=== PATIENT | male | born 1980 | race Caucasian/White ===

== ENCOUNTER 2018-05-27 13:12 | Emergency (ER) | payer MEDICAID ==
--- NOTE | 2018-05-27 14:00 | EDM.PDOC ---
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 He was seen momentarily in [place] urgent care then transferred to the ED [facility]. He has today new onset of chest discomfort 8/10 intensity and radiates to her left jaw and left shoulder and left arm. This is preceded by 5/10 headache. Normally has 2 or 3 times year 8/10 migraines. He did not think his symptoms were related to a migraine. Today's headache was 5/10, and accompanied by tingling of his left upper extremity and lower leg associated with the L. jaw twitching. With these symptoms he was frightened he might be having a stroke. - Related Data Allergies Allergy/AdvReac Type Severity Reaction Status Date / Time No Known Allergies Allergy Verified 05/27/18 13:20 Past Medical History Cardiovascular History: Reports: Hypertension Gastrointestinal History: Reports: GERD Psychiatric History: Reports: Anxiety Endocrine/Metabolic History: Reports: Obesity/BMI 30+ Social & Family History - Family History Family Medical History: Noncontributory - Tobacco Use Smoking Status *Q: Light Tobacco Smoker Years of Tobacco use: 5 Packs/Tins Daily: 0.2 - Caffeine Use Caffeine Use: Reports: Coffee - Recreational Drug Use Recreational Drug Use: No ED ROS GENERAL - Review of Systems Review Of Systems: ROS reveals no pertinent complaints other than HPI. Respiratory: Reports: No Symptoms, Cough, Other (Light cough noted last several days) Hematologic/Lymphatic: Reports: Other (Feels cold all the time his polyuria polydipsia) ED EXAM, GENERAL - Physical Exam Exam: See Below Free Text/Narrative:: Alert overweight muscular well-nourished mal in mildly anxious with no diaphoresis Exam Limited By: No Limitations General Appearance: Alert, WD/WN, No Apparent Distress Eye Exam: Bilateral Eye: Normal Inspection (Blurred vision both eyes. EOMs normal conjugate vision normal no nystagmus. No abnormality of the retina) Ears: Normal External Exam, Normal Canal, Hearing Grossly Normal, Normal TMs Ear Exam: Bilateral Ear: Auricle Normal, Canal Normal, TM normal Nose: Normal Inspection Throat/Mouth: Normal Inspection, Normal Lips, Normal Teeth, Normal Gums, Normal Oropharynx, Normal Voice Head: Atraumatic, Normocephalic Neck: Normal Inspection, Supple, Non-Tender, Full Range of Motion Respiratory/Chest: No Respiratory Distress, Lungs Clear, Normal Breath Sounds, No Accessory Muscle Use Cardiovascular: Normal Peripheral Pulses, Regular Rate, Rhythm, No Edema, No Gallop, No JVD, No Murmur, No Rub Peripheral Pulses: 1+: Radial (L), Radial (R) GI/Abdominal: Normal Bowel Sounds, Soft, No Organomegaly, No Distention, Other ( Mild infra umbilical and infra periumbilical pain increases with attempting sit up negative with lying down negative Carnett's sign) (Male) Exam: No Hernia, Other (circumsized) Rectal (Males) Exam: Deferred Back Exam: Normal Inspection, Other Extremities: Normal Inspection, Normal Range of Motion, No Pedal Edema, Normal Capillary Refill Neurological: Alert, Oriented, CN II-XII Intact, Normal Cognition, Normal Gait, Normal Reflexes, No Motor/Sensory Deficits, Other (Normal sharp sensation right upper lower extremities, decreased sharp sensation left upper and lower extremities, no pronator drift, slight decrease left hand edge banding off bearer. He is left-hand dominant so this is slightly abnormal.) Psychiatric: Normal Affect, Normal Mood Skin Exam: Warm, Dry, Intact, Normal Color Lymphatic: No Adenopathy EKG INTERPRETATION EKG Date: 05/27/18 Time: 14:00 Rhythm: NSR [place]: Normal P-Wave: Present QRS: Other (Late R-wave progression anterior precordials suggesting left posterior hemiblock) ST-T: Normal QT: Normal EKG Interpretation Comments: Left posterior hemiblock, normal sinus rhythm, inferior Q waves in 2 aVF (are not abn abnormal face of left posterior hemiblock). Course - Vital Signs Last Recorded V/S: Last Vital Signs Temp 36.6 C 05/27/18 13:20 Pulse 78 05/27/18 14:30 Resp 20 05/27/18 13:20 BP 164/97 H 05/27/18 14:30 Pulse Ox 99 05/27/18 14:30 - Orders/Labs/Meds Orders: Active Orders 24 hr Category Date Time Status EKG Documentation Completion [RC] ASDIRECTED Care 05/27/18 13:48 Active CXR [Chest 2V] [CR] Stat Exams 05/27/18 13:47 Taken Head wo Cont [CT] Stat Exams 05/27/18 13:46 Taken DRUG SCREEN, URINE ALERE [URCHEM] Urgent Lab 05/27/18 13:49 Ordered UA W/MICROSCOPIC [URIN] Urgent Lab 05/27/18 13:49 Ordered EKG 12 Lead [EK] Routine Ther 05/27/18 13:48 Ordered Labs: Laboratory Tests 05/27/18 05/27/18 05/27/18 Range/Units 14:00 14:00 14:00 WBC 10.9 (4.5-12.0) X10-3/uL RBC 5.80 H (4.30-5.75) x10(6)uL Hgb 17.5 H (11.5-15.5) g/dL Hct 52.0 H (30.0-51.3) % MCV 89.7 (80-96) fL MCH 30.2 (27.7-33.6) pg MCHC 33.7 (32.2-35.4) g/dL RDW 12.5 (11.5-15.5) % Plt Count 234 (125-369) X10(3)uL MPV 9.5 (7.4-10.4) fL Neut % (Auto) 74.3 (46-82) % Lymph % (Auto) 17.3 (13-37) % [place] % (Auto) 5.9 (4-12) % Eos % (Auto) 1 (1.0-5.0) % Baso % (Auto) 2 (0-2) % Neut # (Auto) 8.1 (1.6-8.3) # Lymph # (Auto) 1.9 (0.6-5.0) # [place] # (Auto) 0.6 (0.0-1.3) # Eos # (Auto) 0.1 (0.0-0.8) # Baso # (Auto) 0.2 (0.0-0.2) # D-Dimer, Quantitative (0.0-0.59) mg/LFEU Sodium 141 (135-145) mmol/L Potassium 3.9 (3.5-5.3) mmol/L Chloride 104 (100-110) mmol/L Carbon Dioxide 26 (21-32) mmol/L BUN 11 (7-18) mg/dL Creatinine 1.0 (0.70-1.30) mg/dL Est Cr Clr Drug Dosing 106.68 mL/min Estimated GFR (MDRD) > 60 (>60) BUN/Creatinine Ratio 11.0 (9-20) Glucose 97 (80-116) mg/dL Calcium 9.4 (8.6-10.2) mg/dL Total Bilirubin 1.0 (0.1-1.3) mg/dL AST 18 (5-25) IU/L ALT 29 (12-36) U/L Alkaline Phosphatase 116 H (56-112) IU/L Troponin I < 0.017 L (<0.017-0.056) ng/mL Total Protein 8.3 H (6.0-8.0) g/dL Albumin 4.5 (3.5-5.2) g/dL Globulin 3.8 g/dL Albumin/Globulin Ratio 1.2 05/27/18 Range/Units 14:00 WBC (4.5-12.0) X10-3/uL RBC (4.30-5.75) x10(6)uL Hgb (11.5-15.5) g/dL Hct (30.0-51.3) % MCV (80-96) fL MCH (27.7-33.6) pg MCHC (32.2-35.4) g/dL RDW (11.5-15.5) % Plt Count (125-369) X10(3)uL MPV (7.4-10.4) fL Neut % (Auto) (46-82) % Lymph % (Auto) (13-37) % [place] % (Auto) (4-12) % Eos % (Auto) (1.0-5.0) % Baso % (Auto) (0-2) % Neut # (Auto) (1.6-8.3) # Lymph # (Auto) (0.6-5.0) # [place] # (Auto) (0.0-1.3) # Eos # (Auto) (0.0-0.8) # Baso # (Auto) (0.0-0.2) # D-Dimer, Quantitative 0.34 (0.0-0.59) mg/LFEU Sodium (135-145) mmol/L Potassium (3.5-5.3) mmol/L Chloride (100-110) mmol/L Carbon Dioxide (21-32) mmol/L BUN (7-18) mg/dL Creatinine (0.70-1.30) mg/dL Est Cr Clr Drug Dosing mL/min Estimated GFR (MDRD) (>60) BUN/Creatinine Ratio (9-20) Glucose (80-116) mg/dL Calcium (8.6-10.2) mg/dL Total Bilirubin (0.1-1.3) mg/dL AST (5-25) IU/L ALT (12-36) U/L Alkaline Phosphatase (56-112) IU/L Troponin I (<0.017-0.056) ng/mL Total Protein (6.0-8.0) g/dL Albumin (3.5-5.2) g/dL Globulin g/dL Albumin/Globulin Ratio Departure - Departure Time of Disposition: 14:00 (Working Diagnosis probable migraine with blurred vision left mary-esthesia. Negative CT head. EKG sinus rhythm abnormal left posterior hemiblock abnormal R-wave progression without ST elevation suggestive coronary artery disease. Has potential for other risk factor of coronary disease dyslipidemia. CT head negative. He moments ago ([id number]) told the nurse that he has not taken his lisinopril 20 mg/day for 2 months because he ran out of the prescription and did not have the money. Also work excuse is given for today he will return to work on 05/28/2018) Disposition: Home, Self-Care 01 Condition: Good Clinical Impression: Obesity (BMI 35.0-39.9 without comorbidity) Migraine Qualifiers: Migraine type: without aura Status migrainosus presence: without status migrainosus Intractability: not intractable Qualified Code(s): G43.009 - Migraine without aura, not intractable, without status migrainosus - Discharge Information Referrals: PCP,None [Primary Care Provider] - Forms: ED Department Discharge - My Orders Last 24 Hours: My Active Orders 05/27/18 13:46 Head wo Cont [CT] Stat 05/27/18 13:47 CXR [Chest 2V] [CR] Stat 05/27/18 13:48 EKG Documentation Completion [RC] ASDIRECTED EKG 12 Lead [EK] Routine 05/27/18 13:49 DRUG SCREEN, URINE ALERE [URCHEM] Urgent UA W/MICROSCOPIC [URIN] Urgent - Assessment/Plan Last 24 Hours: My Active Orders 05/27/18 13:46 Head wo Cont [CT] Stat 05/27/18 13:47 CXR [Chest 2V] [CR] Stat 05/27/18 13:48 EKG Documentation Completion [RC] ASDIRECTED EKG 12 Lead [EK] Routine 05/27/18 13:49 DRUG SCREEN, URINE ALERE [URCHEM] Urgent UA W/MICROSCOPIC [URIN] Urgent
== END 2018-05-27 14:49 | disposition home or self-care (01) ==
LOC: FB.ED 13:12
DX: G43.009 Migraine without aura, not intractable, without status migrainosus (principal); E66.9 Obesity, unspecified; F17.210 Nicotine dependence, cigarettes, uncomplicated; I10 Essential (primary) hypertension; K21.9 Gastro-esophageal reflux disease without esophagitis; Z68.36 Body mass index [BMI] 36.0-36.9, adult
CPT/HCPCS: 36415; 70450; 71046; 80053; 84484; 85025; 85379; 93005; 99284-25

== ENCOUNTER 2018-12-14 11:03 | Emergency (ER) | payer MEDICAID ==
--- NOTE | 2018-12-14 12:30 | EDM.PDOC ---
ED HPI GENERAL MEDICAL PROBLEM - General Chief Complaint: Cardiovascular Problem Stated Complaint: HIGH BP Time Seen by Provider: 12/14/18 11:17 Source of Information: Reports: Patient History Limitations: Reports: No Limitations - History of Present Illness INITIAL COMMENTS - FREE TEXT/NARRATIVE: Patient sent over from walk-in clinic with concern for elevated blood pressure, substernal chest burning and cough for a week. Has been off of his lisinopril 40 mg once daily and then taking some cold medications. Patient is otherwise asymptomatic except for complaints of a headache, which he states is from his cold. Patient notes he has had cold symptoms for approximately a week. He notes slight headache, nasal congestion, coughing, sore throat, some chills and sweats but no fever. He has had some ringing in his left ear on occasion. He has been taking NyQuil and DayQuil but not any other [id number]-uvqaipe medications. He denies having had a fever, shortness of breath or difficulty on exertion, change in tobacco use. He smokes cigarettes occasionally and also drinks occasional social alcohol. He has a history of hypertension which he is prescribed lisinopril 40 mg for but has not been taking it for the past month. - Related Data Allergies Allergy/AdvReac Type Severity Reaction Status Date / Time No Known Allergies Allergy Verified 05/27/18 13:20 Home Meds: Home Meds Lisinopril 20 mg PO DAILY #30 tablet 05/27/18 [Rx] Omeprazole 20 mg PO ACBREAKFAST #60 cap.sr 05/27/18 [Rx] Albuterol [Ventolin HFA] 4 puff .XX Q4H PRN #1 inhaler 12/14/18 [Rx] Past Medical History Cardiovascular History: Reports: Hypertension Gastrointestinal History: Reports: GERD Psychiatric History: Reports: Anxiety Endocrine/Metabolic History: Reports: Obesity/BMI 30+ Social & Family History - Family History Family Medical History: Noncontributory (no history of early DE/sudden cardiac ) - Tobacco Use Smoking Status *Q: Current Some Day Smoker - Caffeine Use Caffeine Use: Reports: Coffee - Alcohol Use Alcohol Use History: Yes Date/Time of Last Drink Comment: social - Recreational Drug Use Recreational Drug Use: No - Living Situation & Occupation Living situation: Reports: with Significant Other Occupation: Employed ED ROS GENERAL - Review of Systems Review Of Systems: ROS reveals no pertinent complaints other than HPI. ED EXAM, GENERAL - Physical Exam Exam: See Below Free Text/Narrative:: Gen.: Alert, no acute distress. Tympanic membranes are clear bilaterally with normal light reflex and throat is without erythema, mucous members are moist and there is no tonsillar enlargement or exudates. Significant nasal congestion is noted. No sinus tenderness. Neck is supple and there is no cervical lymphadenopathy. Lungs are clear throughout with a few inspiratory and expiratory wheezes but no crackles and good air movement overall. Heart is regular rate and rhythm and I do not hear murmur. Peripheral pulses +2 in the upper and lower extremities and there is no lower extremity edema. His blood pressure on arrival here is 163/95 Course - Vital Signs Text/Narrative:: Labs ordered. EKG appears normal. Chest x-ray does not show an acute infiltrate. Blood pressure not in severe range here - Orders/Labs/Meds Orders: Active Orders 24 hr Category Date Time Status EKG Documentation Completion [RC] ASDIRECTED Care 12/14/18 11:13 Active EKG 12 Lead [EK] Stat Ther 12/14/18 11:12 Ordered Labs: Laboratory Tests 12/14/18 12/14/18 12/14/18 Range/Units 11:40 11:40 11:40 WBC 10.9 (4.5-12.0) X10-3/uL RBC 5.72 (4.30-5.75) x10(6)uL Hgb 17.2 (13.5-17.8) g/dL Hct 51.3 (30.0-51.3) % MCV 89.7 (80-96) fL MCH 30.1 (27.7-33.6) pg MCHC 33.5 (32.2-35.4) g/dL RDW 13.4 (11.5-15.5) % Plt Count 179 (125-369) X10(3)uL MPV 10.1 (7.4-10.4) fL Add Manual Diff Yes Neutrophils % (Manual) 82 (46-82) % Lymphocytes % (Manual) 12 L (13-37) % Monocytes % (Manual) 5 (4-12) % Eosinophils % (Manual) 1 (0-5) % Sodium 143 (135-145) mmol/L Potassium 3.6 (3.5-5.3) mmol/L Chloride 107 (100-110) mmol/L Carbon Dioxide 26 (21-32) mmol/L BUN 10 (7-18) mg/dL Creatinine 0.8 (0.70-1.30) mg/dL Est Cr Clr Drug Dosing TNP Estimated GFR (MDRD) > 60 (>60) BUN/Creatinine Ratio 12.5 (9-20) Glucose 85 (80-116) mg/dL Calcium 9.1 (8.6-10.2) mg/dL Troponin I < 0.017 L (<0.017-0.056) ng/mL C-Reactive Protein (0.5-0.9) mg/dL 12/14/18 Range/Units 11:40 WBC (4.5-12.0) X10-3/uL RBC (4.30-5.75) x10(6)uL Hgb (13.5-17.8) g/dL Hct (30.0-51.3) % MCV (80-96) fL MCH (27.7-33.6) pg MCHC (32.2-35.4) g/dL RDW (11.5-15.5) % Plt Count (125-369) X10(3)uL MPV (7.4-10.4) fL Add Manual Diff Neutrophils % (Manual) (46-82) % Lymphocytes % (Manual) (13-37) % Monocytes % (Manual) (4-12) % Eosinophils % (Manual) (0-5) % Sodium (135-145) mmol/L Potassium (3.5-5.3) mmol/L Chloride (100-110) mmol/L Carbon Dioxide (21-32) mmol/L BUN (7-18) mg/dL Creatinine (0.70-1.30) mg/dL Est Cr Clr Drug Dosing Estimated GFR (MDRD) (>60) BUN/Creatinine Ratio (9-20) Glucose (80-116) mg/dL Calcium (8.6-10.2) mg/dL Troponin I (<0.017-0.056) ng/mL C-Reactive Protein 0.7 (0.5-0.9) mg/dL - Re-Assessments/Exams Free Text/Narrative Re-Assessment/Exam: 12/14/18 labs reviewed, patient's blood pressure improved after sitting a while. No acute infiltrate seen on chest x-ray, and he has not had any chest pain or other symptoms here suggestive of symptomatic hypertension. He would very much like to go home. Discussed symptomatic treatments for upper respiratory tract infection, and strongly recommended restart lisinopril. Also discussed smoking cessation. He is in agreement with this plan and has no further questions Departure - Departure Time of Disposition: 12:28 Disposition: Home, Self-Care 01 Reason for Transfer *Q: Primary PCI Indicated Clinical Impression: Hypertensive heart disease, Viral URI with cough Prescriptions: Albuterol [Ventolin HFA] 4 puff .XX Q4H PRN #1 inhaler PRN Reason: Cough Instructions: Upper Respiratory Infection, Adult, [id number], Hypertension Referrals: PCP,None [Primary Care Provider] - Forms: ED Department Discharge Additional Instructions: lots of fluids careful with cold medicines - anything that says "do not take if high blood pressure" restart lisinopril inhaler sent in for cough - My Orders Last 24 Hours: My Active Orders 12/14/18 11:12 EKG 12 Lead [EK] Stat 12/14/18 11:13 EKG Documentation Completion [RC] ASDIRECTED - Assessment/Plan Last 24 Hours: My Active Orders 12/14/18 11:12 EKG 12 Lead [EK] Stat 12/14/18 11:13 EKG Documentation Completion [RC] ASDIRECTED
--- NOTE | 2018-12-14 13:44 | CR ---
INDICATION: Chest pain. CHEST: PA and lateral views of the chest, 12/14/18, were compared with 05/27/18 , again revealing the heart to be normal in size and shape. Mediastinum and bone thorax were unremarkable. An active infiltrate, effusion, or pneumothorax was not identified. Overlying EKG leads are noted. IMPRESSION: No active disease. MTDD
== END 2018-12-14 12:50 | disposition home or self-care (01) ==
LOC: FB.ED 11:03
DX: I11.9 Hypertensive heart disease without heart failure (principal); J06.9 Acute upper respiratory infection, unspecified; F17.200 Nicotine dependence, unspecified, uncomplicated
CPT/HCPCS: 36415; 71046; 80048; 84484; 85025; 86140; 93005; 99283-25

== ENCOUNTER 2020-11-13 19:46 | Emergency (ER) | payer MEDICAID ==
[2020-11-13] MEDS ORDERED: Ketorolac 10 MG Tab PO ONE (19:47)
[2020-11-13] MEDS ORDERED: Acetaminophen/HYDROcodone 325-5 MG Tab PO ONE (19:47)
[2020-11-13] MEDS ORDERED: Ketorolac 30 MG/ML SDV IVPUSH ONE (20:26)
[2020-11-13] MEDS ORDERED: Sodium Chloride 0.9% 1,000 ML IV ONE (20:26)
--- NOTE | 2020-11-13 20:57 | EDM.PDOC ---
ED HPI GENERAL MEDICAL PROBLEM - General Stated Complaint: PAIN IN RIGHT SIDE Time Seen by Provider: 11/13/20 20:05 Source of Information: Reports: Patient, Family History Limitations: Reports: No Limitations - History of Present Illness INITIAL COMMENTS - FREE TEXT/NARRATIVE: c/o R flank pain pt has had nonspecific discomfort in the R groin x 2w, felt like he was unable to evacuate his bladder or bowels, he took Ex Lax yesterday and had a large soft BM he worked at [employer] today, got home at 6:30 and now had pain at R flank that wrapped around to his R groin, took no meds, "I don't like to take meds," ate no supper no h/o abd surgery, no prior abd pain, no h/o stones pacing in room, pain 01/07 - Related Data Allergies Allergy/AdvReac Type Severity Reaction Status Date / Time No Known Allergies Allergy Verified 11/13/20 21:28 Home Meds: Home Meds Lisinopril 20 mg PO DAILY #30 tablet 05/27/18 [Rx] Past Medical History Cardiovascular History: Reports: Hypertension Gastrointestinal History: Reports: GERD Psychiatric History: Reports: Anxiety Endocrine/Metabolic History: Reports: Obesity/BMI 30+ Social & Family History - Family History Family Medical History: No Pertinent Family History - Caffeine Use Caffeine Use: Reports: Coffee - Living Situation & Occupation Living situation: Reports: with Significant Other Occupation: Employed ED ROS GENERAL - Review of Systems Review Of Systems: See Below Constitutional: Reports: No Symptoms HEENT: Reports: No Symptoms Respiratory: Reports: No Symptoms Cardiovascular: Reports: No Symptoms Endocrine: Reports: No Symptoms GI/Abdominal: Reports: Constipation. Denies: Nausea, Vomiting : Reports: No Symptoms Musculoskeletal: Reports: No Symptoms Skin: Reports: No Symptoms Neurological: Reports: No Symptoms Psychiatric: Reports: No Symptoms Hematologic/Lymphatic: Reports: No Symptoms Immunologic: Reports: No Symptoms ED EXAM, GI/ABD - Physical Exam Exam: See Below Exam Limited By: No Limitations General Appearance: Alert, WD/WN, Mild Distress Ears: Hearing Grossly Normal Nose: Normal Inspection Throat/Mouth: Normal Inspection, Normal Voice, No Airway Compromise Head: Atraumatic, Normocephalic Neck: Normal Inspection, Supple, Non-Tender, Full Range of Motion. No: Lymphadenopathy (R), Lymphadenopathy (L) Respiratory/Chest: No Respiratory Distress, Lungs Clear, Normal Breath Sounds, Chest Non-Tender Cardiovascular: Regular Rate, Rhythm, No Edema, No Murmur GI/Abdominal Exam: Normal Bowel Sounds, Soft, No Organomegaly, No Distention, No Mass, Other (1+ tender at R flank and R groin, less tender at McBurney's point, 1+ CVAT on R, nontender elsewhere) Back Exam: Normal Inspection, Full Range of Motion Extremities: Normal Inspection, Normal Range of Motion, Non-Tender, No Pedal Edema Neurological: Alert, Oriented, CN II-XII Intact, Normal Cognition, No Motor/Sensory Deficits Psychiatric: Normal Affect, Normal Mood Skin Exam: Warm, Dry, Intact, Normal Color, No Rash Lymphatic: No Adenopathy Course - Vital Signs Last Recorded V/S: Last Vital Signs Temp 37.1 C 11/13/20 19:55 Pulse 82 11/13/20 19:55 Resp 18 11/13/20 19:55 BP 172/99 H 11/13/20 19:55 Pulse Ox 96 11/13/20 19:55 - Orders/Labs/Meds Orders: Active Orders 24 hr Category Date Time Status Abdomen Pelvis wo Cont [CT] Stat Exams 11/13/20 20:27 Ordered Labs: Laboratory Tests 11/13/20 11/13/20 11/13/20 Range/Units 20:20 20:40 20:40 WBC 11.1 H (3.2-10.1) x10-3/uL RBC 5.07 (3.90-5.90) x10(6)uL Hgb 15.4 (12.9-17.7) g/dL Hct 45.3 (38.3-50.1) % MCV 89.5 (80.8-98.7) fL MCH 30.3 (27.0-33.3) pg MCHC 33.9 (28.7-35.3) g/dL RDW 13.3 (12.4-15.0) % Plt Count 210 (117-477) x10(3)uL MPV 10.4 (6.7-11.0) fL Neut % (Auto) 72.1 H (40.3-71.8) % Lymph % (Auto) 15.8 (15.8-45.3) % Page % (Auto) 7.1 (5.5-15.2) % Eos % (Auto) 4.3 (0.1-6.8) % Baso % (Auto) 0.7 (0.3-3.8) % Neut # (Auto) 8.0 H (1.7-6.9) x10-3/uL Lymph # (Auto) 1.8 (0.5-4.5) x10-3/uL Page # (Auto) 0.8 (0.0-1.2) x10-3/uL Eos # (Auto) 0.5 (0.0-0.6) x10-3/uL Baso # (Auto) 0.1 (0.0-0.3) x10-3/uL Sodium 145 (135-145) mmol/L Potassium 4.5 (3.5-5.3) mmol/L Chloride 109 (100-110) mmol/L Carbon Dioxide 24 (21-32) mmol/L BUN 17 (7-18) mg/dL Creatinine 1.1 (0.70-1.30) mg/dL Est Cr Clr Drug Dosing TNP Estimated GFR (MDRD) > 60 (>60) BUN/Creatinine Ratio 15.5 (9-20) Glucose 139 H (80-116) mg/dL Calcium 9.2 (8.6-10.2) mg/dL Total Bilirubin 1.0 (0.1-1.3) mg/dL AST 25 D (5-25) IU/L ALT 34 D (12-36) U/L Alkaline Phosphatase 105 (56-112) IU/L C-Reactive Protein (0.5-0.9) mg/dL Total Protein 7.6 (6.0-8.0) g/dL Albumin 3.9 (3.5-5.2) g/dL Globulin 3.7 g/dL Albumin/Globulin Ratio 1.1 Urine Color Yellow (YELLOW) Urine Appearance Clear (CLEAR) Urine pH 5.0 (5.0-6.5) Ur Specific [place] 1.030 H (1.010-1.025) Urine Protein Negative (NEGATIVE) mg/dL Urine Glucose (UA) Normal (NORMAL) mg/dL Urine Ketones Negative (NEGATIVE) mg/dL Urine Occult Blood Large H (NEGATIVE) Urine Nitrite Negative (NEGATIVE) Urine Bilirubin Negative (NEGATIVE) Urine Urobilinogen Normal (NEGATIVE) mg/dL Ur Leukocyte Esterase Negative (NEGATIVE) Urine RBC 5-10 H (0-5) Urine WBC 0-5 (0-5) Ur Squamous Epith Cells Occasional (NS,R,O) Urine Bacteria Few H (NS) 11/13/20 Range/Units 20:40 WBC (3.2-10.1) x10-3/uL RBC (3.90-5.90) x10(6)uL Hgb (12.9-17.7) g/dL Hct (38.3-50.1) % MCV (80.8-98.7) fL MCH (27.0-33.3) pg MCHC (28.7-35.3) g/dL RDW (12.4-15.0) % Plt Count (117-477) x10(3)uL MPV (6.7-11.0) fL Neut % (Auto) (40.3-71.8) % Lymph % (Auto) (15.8-45.3) % Page % (Auto) (5.5-15.2) % Eos % (Auto) (0.1-6.8) % Baso % (Auto) (0.3-3.8) % Neut # (Auto) (1.7-6.9) x10-3/uL Lymph # (Auto) (0.5-4.5) x10-3/uL Page # (Auto) (0.0-1.2) x10-3/uL Eos # (Auto) (0.0-0.6) x10-3/uL Baso # (Auto) (0.0-0.3) x10-3/uL Sodium (135-145) mmol/L Potassium (3.5-5.3) mmol/L Chloride (100-110) mmol/L Carbon Dioxide (21-32) mmol/L BUN (7-18) mg/dL Creatinine (0.70-1.30) mg/dL Est Cr Clr Drug Dosing Estimated GFR (MDRD) (>60) BUN/Creatinine Ratio (9-20) Glucose (80-116) mg/dL Calcium (8.6-10.2) mg/dL Total Bilirubin (0.1-1.3) mg/dL AST (5-25) IU/L ALT (12-36) U/L Alkaline Phosphatase (56-112) IU/L C-Reactive Protein 0.4 L (0.5-0.9) mg/dL Total Protein (6.0-8.0) g/dL Albumin (3.5-5.2) g/dL Globulin g/dL Albumin/Globulin Ratio Urine Color (YELLOW) Urine Appearance (CLEAR) Urine pH (5.0-6.5) Ur Specific [place] (1.010-1.025) Urine Protein (NEGATIVE) mg/dL Urine Glucose (UA) (NORMAL) mg/dL Urine Ketones (NEGATIVE) mg/dL Urine Occult Blood (NEGATIVE) Urine Nitrite (NEGATIVE) Urine Bilirubin (NEGATIVE) Urine Urobilinogen (NEGATIVE) mg/dL Ur Leukocyte Esterase (NEGATIVE) Urine RBC (0-5) Urine WBC (0-5) Ur Squamous Epith Cells (NS,R,O) Urine Bacteria (NS) Meds: Medications Discontinued Medications Generic Name Dose Route Start Last Admin Trade Name Portia PRN Reason Stop Dose Admin Diphenhydramine HCl 25 mg 11/13/20 21:19 11/13/20 21:28 Diphenhydramine 50 Mg/Ml Sdv IVPUSH 11/13/20 21:20 25 mg ONETIME ONE Administration Sodium Chloride 1,000 mls @ 999 mls/hr 11/13/20 20:26 11/13/20 20:45 Normal Saline IV 11/13/20 21:26 999 mls/hr .BOLUS ONE Administration Ketorolac Tromethamine 30 mg 11/13/20 20:26 11/13/20 20:47 Ketorolac 30 Mg/Ml Sdv IVPUSH 11/13/20 20:27 30 mg ONETIME ONE Administration Metoclopramide HCl 10 mg 11/13/20 21:19 11/13/20 21:23 Metoclopramide 10 Mg/2 Ml Sdv IVPUSH 11/13/20 21:20 10 mg ONETIME ONE Administration - Re-Assessments/Exams Free Text/Narrative Re-Assessment/Exam: 11/13/20 22:10 1 mm stone at R UVJ on CT, u/a with 5-10 rbc pt with good pain relief with meds here advised he could work Departure - Departure Time of Disposition: 22:06 Disposition: Home, Self-Care 01 Condition: Good Clinical Impression: Renal colic on right side, Ureteral stone - Discharge Information *PRESCRIPTION DRUG MONITORING PROGRAM REVIEWED*: Yes *COPY OF PRESCRIPTION DRUG MONITORING REPORT IN PATIENT HILARY: No Instructions: Kidney Stones, Renal Colic Referrals: PCP,None [Primary Care Provider] - Forms: ED Return to Work/School Form Additional Instructions: For pain, take ketorolac 10 mg 1 tab 4 times a day until the stone passes. For pain not controlled with ketorolac, take hydrocodone with acetaminophen 5/325 mg 1 tab every 6 hours as needed. Maintain fluids. Get adequate rest. See your doctor in 3-4 days for further recommendations. Return to Emergency Department if you have additional symptoms or pain that is not is controlled at home. Sepsis Event Note (ED) - Focused Exam Vital Signs: Vital Signs Temp Pulse Resp BP Pulse Ox 11/13/20 19:55 37.1 C 82 18 172/99 H 96 - My Orders Last 24 Hours: My Active Orders 11/13/20 20:27 Abdomen Pelvis wo Cont [CT] Stat - Assessment/Plan Last 24 Hours: My Active Orders 11/13/20 20:27 Abdomen Pelvis wo Cont [CT] Stat
[2020-11-13] MEDS ORDERED: diphenhydrAMINE 50 MG/ML SDV IVPUSH ONE (21:19)
[2020-11-13] MEDS ORDERED: Metoclopramide 10 MG/2 ML SDV IVPUSH ONE (21:19)
== END 2020-11-13 22:30 | disposition home or self-care (01) ==
LOC: FB.ED 19:46
DX: N13.2 Hydronephrosis with renal and ureteral calculous obstruction (principal); K21.9 Gastro-esophageal reflux disease without esophagitis; I10 Essential (primary) hypertension; E66.9 Obesity, unspecified; Z79.899 Other long term (current) drug therapy; Z68.39 Body mass index [BMI] 39.0-39.9, adult
CPT/HCPCS: 36415; 74176; 80053; 81001; 85025; 86140; 96374; 96375; 99284; A9270; J1200; J1885; J2765; J7030

== ENCOUNTER 2024-03-15 11:21 | Emergency (ER) | payer BC, MEDICAID ==
[2024-03-15] MEDS ORDERED: Metoprolol Tartrate 5 MG in Sodium Chloride 0.9% 50 ML IV ONE (11:50)
[2024-03-15 12:00] LABS: BASOPHILS ABSOLUTE AUTO 0.1 x10-3/uL (0.0-0.3); BASOPHILS PERCENT AUTO 0.9 % (0.3-3.8); EOSINOPHILS ABSOLUTE AUTO 0.2 x10-3/uL (0.0-0.6); EOSINOPHILS PERCENT AUTO 1.9 % (0.1-6.8); HEMATOCRIT 50.3 % (38.3-50.1); HEMOGLOBIN 17.7 g/dL (12.9-17.7); LYMPHOCYTES ABSOLUTE AUTO 1.3 x10-3/uL (0.5-4.5); LYMPHOCYTES PERCENT AUTO 13.9 % (15.8-45.3); MEAN CORPUSCULAR HEMOGLOBIN 31.5 pg (27.0-33.3); MEAN CORPUSCULAR HGB CONC 35.2 g/dL (28.7-35.3); MEAN CORPUSCULAR VOLUME 89.5 fL (80.8-98.7); MEAN PLATELET VOLUME 9.6 fL (6.7-11.0); MONOCYTES ABSOLUTE AUTO 0.7 x10-3/uL (0.0-1.2); MONOCYTES PERCENT AUTO 7.1 % (5.5-15.2); NEUTROPHILS ABSOLUTE AUTO 7.2 x10-3/uL (1.7-6.9); NEUTROPHILS PERCENT AUTO 76.2 % (40.3-71.8); PLATELET COUNT,PLT 195 x10(3)uL (117-477); RED BLOOD CELL COUNT 5.62 x10(6)uL (3.90-5.90); RED CELL DISTRIBUTION WIDTH 13.8 % (12.4-15.0); WHITE BLOOD CELL COUNT,WBC 9.4 x10-3/uL (3.2-10.1)
[2024-03-15 12:08] LABS: BLOOD UREA NITROGEN,BUN 11 mg/dL (7-18); BUN/CREATININE RATIO 12.2 (9-20); CALCIUM 9.7 mg/dL (8.6-10.2); CARBON DIOXIDE,CO2 24 mmol/L (21-32); CHLORIDE,CL 105 mmol/L (100-110); CREATININE 0.9 mg/dL (0.70-1.30); ESTIMATED GFR 108 mL/min (>60); GLUCOSE RANDOM 99 mg/dL (80-116); POTASSIUM,K 3.7 mmol/L (3.5-5.3); SODIUM,NA 141 mmol/L (135-145)
[2024-03-15 12:13] LABS: A/G RATIO 1.2; ALANINE AMINOTRANSFERASE,ALT 42 U/L (12-36); ALBUMIN 4.6 g/dL (3.5-5.2); ALKALINE PHOSPHATASE 121 IU/L (56-112); ASPARTATE AMNIOTRANSFERASE,AST 24 IU/L (5-25); BILIRUBIN TOTAL 1.9 mg/dL (0.1-1.3); PROTEIN TOTAL,TP 8.3 g/dL (6.0-8.0)
[2024-03-15] MEDS: Sodium Chloride 0.9% 1,000 ML IV ONE (12:13)
[2024-03-15] MEDS: Metoprolol Tartrate 5 MG/5 ML SDV IVPUSH ONE (12:13)
[2024-03-15 12:16] LABS: HEMOGLOBIN A1C 5.1 % (<5.7)
[2024-03-15] MEDS: cloNIDine 0.1 MG Tab PO ONE (13:13)
[2024-03-15] MEDS ORDERED: Ketorolac 30 MG/ML SDV IVPUSH ONE (14:05)
[2024-03-15] MEDS: Ketorolac 15 MG/ML SDV IVPUSH ONE (14:11)
[2024-03-15] MEDS: Sodium Chloride 0.9% 10 ML Syringe FLUSH PRN (14:12)
== END 2024-03-15 15:15 | disposition home or self-care (01) ==
LOC: FB.ED 11:21
DX: G44.209 Tension-type headache, unspecified, not intractable (principal); I11.9 Hypertensive heart disease without heart failure; E66.9 Obesity, unspecified; Z79.899 Other long term (current) drug therapy; Z68.41 Body mass index [BMI] 40.0-44.9, adult
CPT/HCPCS: 36415; 80053; 83036; 83735; 85025; 86140; 96361; 96374; 96375; 99283; A9270; J1885; J3490; J7030

== ENCOUNTER 2024-03-23 09:14 | Emergency (ER) | payer MEDICAID ==
[2024-03-23] MEDS: cloNIDine 0.1 MG Tab PO ONE (10:00)
== END 2024-03-23 11:25 | disposition home or self-care (01) ==
LOC: FB.ED 09:14
DX: I10 Essential (primary) hypertension (principal); E78.00 Pure hypercholesterolemia, unspecified; K21.9 Gastro-esophageal reflux disease without esophagitis; E66.9 Obesity, unspecified; Z87.891 Personal history of nicotine dependence; Z86.16 Personal history of COVID-19; Z88.5 Allergy status to narcotic agent; Z79.899 Other long term (current) drug therapy; Z68.41 Body mass index [BMI] 40.0-44.9, adult
CPT/HCPCS: 99283; A9270